=== PATIENT | male | born 1955 | race Caucasian/White ===

== ENCOUNTER 2018-12-16 10:54 | Outpatient (CLI) | payer BC, MEDICARE ==
--- NOTE | 2018-12-16 14:33 | MRI ---
MRI RIGHT KNEE PERFORMED WITHOUT CONTRAST ENHANCEMENT: Date: 12/16/18 HISTORY: Right knee pain, which has been getting worse recently. FINDINGS: The anterior, as well as posterior cruciate ligaments are intact. The lateral meniscus is normal in shape and appearance. There is a posterior horn medial meniscus tea r. This has an undersurface flap-type component, but also suggestion that there may be more of a radi al component to the tear at the level of the mid portion of the posterior horn with some mild menisca l protrusion related to loss of hoop strength. The medial and lateral collateral ligaments and iliotibial band regions are normal. Patellar articular cartilage shows some very minimal articular cartilage thinning in the medial facet . The medial and lateral patellar retinaculum, and quadriceps and patellar tendons are normal. Small Santos's type cyst is noted. IMPRESSION: Posterior horn medial meniscal tear. The tear has more of an undersurface flap-type morphology, altho ugh there is suggestion there may be some radial component of the tear at the level of the mid portio n of the posterior horn. There is some very mild meniscal protrusion associated with these findings. POS: CYNID
== END 2018-12-16 10:55 | disposition home or self-care (01) ==
LOC: SCSMRI 10:54
PROVIDERS: ATTEND Orthopaedic Surgery
DX: M25.561 Pain in right knee (principal); S83.241A Other tear of medial meniscus, current injury, right knee, initial encounter

== ENCOUNTER 2019-10-31 06:30 | Outpatient (CLI) | payer BC, OTHER ==
[2019-10-31 14:26] LABS: #Eosinphils 0.2 thou/uL (0.0-0.7); #Lymphocytes 1.1 thou/uL (1.20-3.40); #Monocytes 0.6 thou/uL (0.11-0.59); #Neutrophils 5.7 thou/uL (1.40-6.50); %Basophils 0.5 % (0.0-1.0); %Eosinophils 2.4 % (0.0-10.0); %Lymphocytes 14.3 % (21.0-51.0); %Monocytes 7.5 % (0.0-10.0); %Neutrophils 75.3 % (42.0-75.0); Hemoglobin 15.1 g/dL (14.0-18.0); Mean Corpuscular HGB CONC 33.2 g/dL (32.0-36.0); Mean Corpuscular Hemoglobin 30.7 pg (27.0-31.0); Mean Corpuscular Volume 92.4 fL (78.0-98.0); Mean Platelet Volume 7.8 fL (7.4-10.4); Platelet Count 194 thou/uL (130-400); RBC Distribution Width 12.1 % (11.5-14.5); Red Blood Cell (RBC) Count 4.93 mill/uL (4.70-6.10); White Blood Cell (WBC) Count 7.6 thou/uL (4.8-10.8)
[2019-10-31 14:35] LABS: Anion Gap 10 mmol/L (10-20); BUN (Urea Nitrogen) 19 mg/dL (8.4-25.7); Calc. Creatinine Clearance 0 mL/min (70-130); Carbon Dioxide 25 mmol/L (23-31); Chloride 108 mmol/L (98-107); Estimated GFR-MDRD 89; Glucose 102 mg/dL (80-115); Potassium 4.6 mmol/L (3.5-5.1); Sodium 138 mmol/L (136-145)
[2019-10-31 15:35] LABS: Bacteria/HPF None Seen HPF (None Seen); Bilirubin Negative (Negative); Blood, Urine Negative (Negative); Clarity Clear (Clear); Glucose, Urine (Dipstick) Normal (Negative); Leukocyte Negative Leu/uL (Negative); Mucous/LPF Rare LPF (<2+); Nitrite Negative (Negative); Protein, Urine (Dipstick) Negative (Neg-Trace); RBC/HPF 0-3 HPF (0-3); Squamous Epithelial None Seen HPF (0-3); Urobilinogen Normal mg/dL (Less than 2); WBC/HPF 0-3 HPF (0-3)
[2019-11-01 13:10] LABS: SARS-CoV-2 MS2 Positive; SARS-CoV-2 N Gene Negative; SARS-CoV-2 S Gene Negative; SARS-CoV-2 orf1ab Negative
== END 2019-10-31 06:31 | disposition home or self-care (01) ==
LOC: LABBT 06:30
PROVIDERS: ATTEND Orthopaedic Surgery Hand Surgery
DX: Z01.812 Encounter for preprocedural laboratory examination (principal); Z11.59 Encounter for screening for other viral diseases; M18.12 Unilateral primary osteoarthritis of first carpometacarpal joint, left hand
CPT/HCPCS: 80048; 81001; 85025; 87635; 93005; 93010; U0003

== ENCOUNTER 2019-11-04 05:48 | Day surgery (SDC) | payer BC ==
[2019-10-28 09:49] VITALS: BMI 29.2
[2019-11-04] MEDS ORDERED: Bacitracin Zinc Ointment 30 gm TUBE ONE (06:21)
[2019-11-04] MEDS ORDERED: Betamet Acet/Betamet Na Ph 30 MG/5 ML VIAL ONE (06:21)
[2019-11-04] MEDS ORDERED: Bupivacaine PF 0.5% 30 ML VIAL ONE ×2 (06:21→10:00)
[2019-11-04] MEDS ORDERED: Midazolam HCl 2 mg/2 ml Vial ONE (06:22)
[2019-11-04] MEDS ORDERED: Fentanyl 100 MCG/2 ML VIAL ONE ×3 (06:22→10:49)
[2019-11-04] MEDS ORDERED: Sodium Chloride 0.9% 10 ML ONE (06:52)
[2019-11-04] MEDS ORDERED: EPINEPHrine 1 MG/ML AMP ONE (09:16)
[2019-11-04] MEDS ORDERED: Ketorolac Tromethamine 30 MG/ML VIAL ONE ×2 (10:45→11:02)
[2019-11-04] MEDS ORDERED: Morphine 4 MG/ML VIAL ONE (10:48)
[2019-11-04] MEDS ORDERED: Lidocaine 1% (PF) 30 ML VIAL ONE (11:01)
[2019-11-04] MEDS ORDERED: Dexamethasone 20 MG/5 ML VIAL ONE (11:02)
[2019-11-04] MEDS ORDERED: Bupivacaine HCl 0.5%/Epinephrine 1:200,000/PF 30 ml Vial ONE (11:02)
[2019-11-04] MEDS ORDERED: Lidocaine 1% PF 5 ML VIAL ONE (11:02)
[2019-11-04] MEDS ORDERED: Ondansetron PF 4 MG/2 ML Vial ONE (11:02)
[2019-11-04] MEDS ORDERED: PROPOFOL 200 MG/20 ML VIAL ONE (11:02)
--- NOTE | 2019-11-04 13:01 | OP ---
DATE OF PROCEDURE: 11/04/2019 PREOPERATIVE DIAGNOSIS: Left thumb osteoarthritis. FINDINGS AND POSTOPERATIVE DIAGNOSES: 1. Left thumb osteoarthritis, 80% trapezium and 70% base of bone thumb. 2. Complete erosion of the joint cartilage with large osteophyte formation. PROCEDURES PERFORMED: 1. Left thumb trapeziectomy. 2. Left thumb flexor carpi radialis transfer for ligament replacement and tendon position and arthroplasty of thumb carpometacarpal. 3. C-arm supervision. 4. Splint application. BLOOD LOSS: Approximately 10 mL. INDICATIONS: Pain, osteoarthritis, failed conservative treatment to include injections, splint, therapy, and medications. DESCRIPTION OF PROCEDURE: After successful general endotracheal anesthesia, he had the limb prepped and draped. We outlined a J-shaped incision on the base of the thumb after doing time-out and also 2-cm incision for harvesting the flexor carpi radialis tendon. We then exsanguinated the limb and inflated the tourniquet to 250 mmHg pressure. The patient then had the incision carried through skin and subcutaneous tissue. We identified the radial nerve and the palmar median nerve branches and protected them in the interval between the abductor and extensor brevis to find the capsule. We opened the capsule and dissected it from the most dorsal ridge distally as well as we removed the thenar musculature from its insertion on the direct lateral thumb metacarpal base, leaving a 3 mm area for later closure. The capsule was retracted with 2-0 undyed Vicryl, exposed the entire trapezium. We dissected trapezium laterally completely and then (radial side) and then on ulnar side, we identified the flexor carpi radialis tendon, freed from its ridge in the trapezium, and then opened the scaphotrapeziotrapezoid joint. Once this was done, we dissected the posterior medial capsule and lifted the trapezium out. Before we did this, we had a threaded K-wire placed in the trapezium that demonstrated on C-arm was indeed the trapezium. We then in the very posteromedial capsule placed a 3-0 Prolene, and then in the very FCR portion of the capsule at its insertion on the 2nd metacarpal base, we placed another 3-0 Prolene. We then rotated the thumb to the nail bed, it was parallel to the palm, and drilled the cannulated screw with 3/7 hole, then went from the lateral ridge, centered in the frontal sagittal plane obliquely into the junction of the chondral surface and the metaphyseal bone in the center of the base of the thumb. Then, we progressively reamed this with a 3.5 drill bit, then with a small, then immediately large curette, had excellent hole, the tendon passed. We went back to the forearm, made a zigzag incision x2, and identified the FCR. We then harvested the FCR musculotendinous junction, brought it down to the wrist. I removed all muscle, removed approximately 2 mm strip of the FCR from its musculotendinous junction all the way to its insertion and then passed it without complication using a curved [employer] baby tendon Passer. We then held it under moderate tension, reduced the thumb to a height of approximately 1 mm distal to its [employer] [place]'s line and then reduced it back into the 2nd metacarpal and then pinned the 1st metacarpal to the 2nd with a large K-wire. There was no gross motion. He had radiographs confirmed in frontal sagittal planes. It was in excellent alignment as intended. We then cut the wire, brought out through separate stab wound in the skin, and then created the anchovy using the 2 separate 3-0 Prolene as listed above. Now, they were weaved through the tendon from its base to its distal end with Christofer needles and then passed. The engineering assistant held these down in the deep posterior part of the capsule until we tied it appropriately and it did not move. We then released the tourniquet, obtained hemostasis. We closed the capsule 1st with a 2-0 Vicryl, it was tagged, closed the retinaculum back to same 2-0 Vicryl to its origin along the dorsal ridge of the base of the thumb metacarpal and some into the actual capsule of the scaphotrapezial joint remnant. Then, we obtained hemostasis, closed the skin at all 3 incisions, 1st with a deep dermal running 4-0 Monocryl undyed and then with a 4-0 nylon interrupted mattress for epidermal closure. We given a total of 40 mL of 0.5% Marcaine, divided between the incisions and the patient left the operating room now with additional splint short-arm thumb spica and then with no evidence of anesthetic or operative complication. Job ID: [id number]
--- NOTE | 2019-11-04 14:28 | RAD ---
EXAM: 3 views of the left wrist HISTORY: [facility] arthroplasty COMPARISON: None FINDINGS/IMPRESSION: 3 limited fluoroscopic views of the left wrist shows the patient ongoing removal of the trapezius. A K wire spans the first and second metacarpals.
== END 2019-11-04 12:46 | disposition home or self-care (01) ==
LOC: SDC 05:48
PROVIDERS: ATTEND Orthopaedic Surgery Hand Surgery
PROC: 3E0T3BZ Introduction of Anesthetic Agent into Peripheral Nerves and Plexi, Percutaneous Approach (ICD-10-PCS; principal; 2019-11-04)
PROC: 0RQT0ZZ Repair Left Carpometacarpal Joint, Open Approach (ICD-10-PCS; principal; 2019-11-04)
PROC: 0LU607Z Supplement Left Lower Arm and Wrist Tendon with Autologous Tissue Substitute, Open Approach (ICD-10-PCS; principal; 2019-11-04)
DX: M18.0 Bilateral primary osteoarthritis of first carpometacarpal joints (principal); G89.18 Other acute postprocedural pain; E78.00 Pure hypercholesterolemia, unspecified; J45.20 Mild intermittent asthma, uncomplicated; Z87.891 Personal history of nicotine dependence; Z79.899 Other long term (current) drug therapy
CPT/HCPCS: 76000; J0171; J0670; J0690; J0702; J1100; J1885; J2001; J2250; J2270; J2405; J2704; J3010; J3490; S0020

== ENCOUNTER 2019-11-24 10:06 | Outpatient (CLI) | payer BC, OTHER ==
[2019-11-24 16:45] LABS: #Eosinphils 0.1 thou/uL (0.0-0.7); #Lymphocytes 1.8 thou/uL (1.20-3.40); #Monocytes 0.5 thou/uL (0.11-0.59); #Neutrophils 5.1 thou/uL (1.40-6.50); %Basophils 0.3 % (0.0-1.0); %Eosinophils 1.6 % (0.0-10.0); %Lymphocytes 23.9 % (21.0-51.0); %Monocytes 6.1 % (0.0-10.0); %Neutrophils 68.1 % (42.0-75.0); Hemoglobin 14.6 g/dL (14.0-18.0); Mean Corpuscular HGB CONC 34.5 g/dL (32.0-36.0); Mean Corpuscular Hemoglobin 31.5 pg (27.0-31.0); Mean Corpuscular Volume 91.3 fL (78.0-98.0); Mean Platelet Volume 7.4 fL (7.4-10.4); Platelet Count 216 thou/uL (130-400); Red Blood Cell (RBC) Count 4.63 mill/uL (4.70-6.10); White Blood Cell (WBC) Count 7.4 thou/uL (4.8-10.8)
[2019-11-24 16:53] LABS: Anion Gap 13 mmol/L (10-20); BUN (Urea Nitrogen) 20 mg/dL (8.4-25.7); Calc. Creatinine Clearance 0 mL/min (70-130); Carbon Dioxide 23 mmol/L (23-31); Chloride 106 mmol/L (98-107); Estimated GFR-MDRD 87; Glucose 99 mg/dL (80-115); Potassium 4.6 mmol/L (3.5-5.1); Sodium 137 mmol/L (136-145)
[2019-11-25 12:55] LABS: SARS-CoV-2 MS2 Positive; SARS-CoV-2 N Gene Negative; SARS-CoV-2 S Gene Negative; SARS-CoV-2 orf1ab Negative
== END 2019-11-24 10:07 | disposition home or self-care (01) ==
LOC: LABBT 10:06
PROVIDERS: ATTEND Orthopaedic Surgery Hand Surgery
DX: Z01.812 Encounter for preprocedural laboratory examination (principal); Z11.59 Encounter for screening for other viral diseases; M18.11 Unilateral primary osteoarthritis of first carpometacarpal joint, right hand
CPT/HCPCS: 80048; 85025; 87635; U0003

== ENCOUNTER 2019-11-28 12:03 | Day surgery (SDC) | payer BC ==
[2019-11-24 12:03] VITALS: BMI 28.5
[~2019-11-28 12:03] MED LIST: Lidocaine 1% PF 5 ML VIAL ONE; PROPOFOL 200 MG/20 ML VIAL ONE
[2019-11-28] MEDS ORDERED: Bupivacaine PF 0.5% 30 ML VIAL ONE (13:19)
[2019-11-28] MEDS ORDERED: Sodium Chloride 0.9% 0 ML ONE (13:20)
[2019-11-28] MEDS ORDERED: Bacitracin Zinc Ointment 30 gm TUBE ONE (13:20)
[2019-11-28] MEDS ORDERED: Thrombin 5000 UNITS/5 ML VIAL ONE (13:20)
[2019-11-28] MEDS ORDERED: Midazolam HCl 2 mg/2 ml Vial ONE (13:46)
[2019-11-28] MEDS ORDERED: Fentanyl 100 MCG/2 ML VIAL ONE ×2 (13:58→15:03)
[2019-11-28] MEDS ORDERED: Ketorolac Tromethamine 30 MG/ML VIAL ONE (15:00)
--- NOTE | 2019-11-28 16:11 | RAD ---
LEFT HAND TWO VIEWS: History: Hardware removal. FINDINGS: The previously noted pin stabilizing the first and second metacarpals has been removed. Prior resecti on of the trapezium. IMPRESSION: Removal of stabilization pin stabilizing the first and second metacarpals. Prior removal of the trape zium. POS: RRE
[2019-11-28] MEDS ORDERED: HYDROcodone/Acetaminophen 5/325 mg Tablet ONE (16:18)
--- NOTE | 2019-11-28 18:15 | OP ---
DATE OF PROCEDURE: 11/28/2019 PREOPERATIVE DIAGNOSIS: 1. Left thumb painful deep wire with wire migration. 2. Ligament reconstruction and tendon interposition procedure, left thumb. POSTOPERATIVE DIAGNOSES AND FINDINGS: Wire migrated approximately 4 mm, making it even with the bone surface not palpable, had the final x-rays in the operating room and was over 6 mm deep from the epidermal and dermal edge. PROCEDURE PERFORMED: Removal of deep wire under C-arm supervision. COMPLICATIONS: None. TOURNIQUET TIME: 5 minutes. BLOOD LOSS: Estimated at 2 mL. FINDINGS: Stable repair after the pin from his carpometacarpal joint was removed. DESCRIPTION OF PROCEDURE: After successful general anesthesia and propofol, the patient was given 10 mL of 0.5% Marcaine block in the area where radiographs with the sterile C-arm showed the pin was located. We waited 5 minutes, exsanguinated the limb, inflated the tourniquet to 250 mmHg pressure and then made a small incision, extension of the regular incision about 1 cm more distal to in order to evaluate and find the pin. We then dissected down as deep as possible and saw a repair, which was intact, and then came up more palmar and saw in the dorsal palmar edge the K-wire with only a 0.5 mm protruding. We then teased it out of this position and removed. We irrigated and obtained hemostasis with the tourniquet deflated. We then closed the incision with interrupted 4-0 nylon in simple pattern. The incision was only 15 mm long. We placed him in a soft dressing. He left the operating room without evidence of anesthetic or operative complication. Job ID: [id number]
== END 2019-11-28 16:42 | disposition home or self-care (01) ==
LOC: SDC 12:03
PROVIDERS: ATTEND Orthopaedic Surgery Hand Surgery
PROC: 0RPX0JZ Removal of Synthetic Substitute from Left Finger Phalangeal Joint, Open Approach (ICD-10-PCS; principal; 2019-11-28)
DX: T84.84XA Pain due to internal orthopedic prosthetic devices, implants and grafts, initial encounter (principal); E78.00 Pure hypercholesterolemia, unspecified; M79.2 Neuralgia and neuritis, unspecified; Z79.899 Other long term (current) drug therapy; Z87.891 Personal history of nicotine dependence
CPT/HCPCS: 76000; J0690; J1885; J2250; J2704; J3010; J3490; S0020

== ENCOUNTER 2022-06-04 09:27 | Outpatient (CLI) | payer BC, MEDICARE ==
[2022-06-04 10:48] LABS: #Eosinphils 0.2 10x3/uL (0.0-0.5); #Monocytes 0.5 10x3/uL (0.0-1.1); #Neutrophils 4.9 10x3/uL (1.5-8.4); %Basophils 0.3 % (0.0-2.0); %Eosinophils 2.6 % (0.0-6.0); %Neutrophils 69.8 % (40.0-75.0); Mean Corpuscular HGB CONC 33.7 g/dL (32.0-36.0); Mean Corpuscular Hemoglobin 31.9 pg (27.0-33.0); Mean Corpuscular Volume 94.8 fl (81.2-95.1); Mean Platelet Volume 9.6 fl (7.4-10.4); Platelet Count 188 10x3/uL (150-450); Red Blood Cell (RBC) Count 4.39 10x6/uL (4.32-5.72); White Blood Cell (WBC) Count 7.1 10x3/uL (3.5-10.5)
== END 2022-06-04 09:28 | disposition home or self-care (01) ==
LOC: LABBT 09:27
PROVIDERS: ATTEND Orthopaedic Surgery Hand Surgery
DX: Z01.818 Encounter for other preprocedural examination (principal); M19.041 Primary osteoarthritis, right hand
CPT/HCPCS: 85025; 93005; 93010

== ENCOUNTER 2022-06-06 07:51 | Day surgery (SDC) | payer BC ==
[2022-06-05 09:44] VITALS: BMI 27.4
[2022-06-06] MEDS ORDERED: Fentanyl 100 MCG/2 ML VIAL ONE (09:06)
[2022-06-06] MEDS ORDERED: Midazolam HCl 2 mg/2 ml Vial ONE (09:06)
[2022-06-06] MEDS ORDERED: Bupivacaine PF 0.5% 30 ML VIAL ONE (09:06)
[2022-06-06] MEDS ORDERED: Lidocaine 1% (PF) 30 ML VIAL ONE (09:25)
[2022-06-06] MEDS ORDERED: CEFAZOLIN 2 GM VIAL ONE ×2 (09:36→10:26)
[2022-06-06] MEDS ORDERED: Sodium Chloride 0.9% 0 ML ONE (09:37)
[2022-06-06] MEDS ORDERED: Bupivacaine HCl 0.5%/Epinephrine 1:200,000/PF 30 ml Vial ONE (09:50)
[2022-06-06] MEDS ORDERED: Neomycin-Polymyxin 1 ML AMP ONE (10:07)
[2022-06-06] MEDS ORDERED: Sodium Chloride 0.9% 100 ML ONE (10:26)
[2022-06-06] MEDS ORDERED: fentaNYL PF 100 MCG/2 ML SYRINGE ONE (10:35)
[2022-06-06] MEDS ORDERED: Metoclopramide HCl 10 MG/2 ML VIAL ONE (10:43)
[2022-06-06] MEDS ORDERED: Lidocaine 1% PF 5 ML VIAL ONE (10:43)
[2022-06-06] MEDS ORDERED: PROPOFOL 200 MG/20 ML VIAL ONE (10:43)
[2022-06-06] MEDS ORDERED: Dexamethasone 20 MG/5 ML VIAL ONE (10:43)
[2022-06-06] MEDS ORDERED: Ondansetron PF 4 MG/2 ML Vial ONE (14:12)
[2022-06-06] MEDS ORDERED: Ketorolac Tromethamine 30 MG/ML VIAL ONE (14:21)
== END 2022-06-06 15:12 | disposition home or self-care (01) ==
LOC: SDC 07:51
PROVIDERS: ATTEND Orthopaedic Surgery Hand Surgery
PROC: 0RUS0KZ Supplement Right Carpometacarpal Joint with Nonautologous Tissue Substitute, Open Approach (ICD-10-PCS; principal; 2022-06-06)
DX: M18.11 Unilateral primary osteoarthritis of first carpometacarpal joint, right hand (principal); E78.00 Pure hypercholesterolemia, unspecified; G62.9 Polyneuropathy, unspecified; J45.30 Mild persistent asthma, uncomplicated; Z87.891 Personal history of nicotine dependence; Z79.899 Other long term (current) drug therapy
CPT/HCPCS: C1894; J1100; J1885; J2001; J2250; J2405; J2704; J2765; J3010; J3490; S0020